=== PATIENT | female | born 1970 | race Caucasian/White ===

== ENCOUNTER 2018-08-27 09:55 | Inpatient (IN) | payer MEDICAID, OTHER ==
[2018-08-27] MEDS: ONDANSETRON 4 MG INJ IV ×5 (10:17→22:26)
[2018-08-27] MEDS: HYDROmorphONE 1 MG/ML SYG IV ×2 (10:18→11:16)
[2018-08-27] MEDS: SOD CHLORIDE 0.9% 1,000 ML IV (10:18)
[2018-08-27 10:20] LABS: ADD MAN DIFF? NO
[2018-08-27 10:22] LABS: WHITE BLOOD COUNT 7.1 10^3/ul (4.8-10.8)
[2018-08-27 10:23] LABS: BASOPHIL # 0.1 10^3/ul (0.0-0.1); BASOPHILS % 1.3 % (0.0-2.0); EOSINOPHILS # 0.1 10^3/ul (0.0-0.5); HEMATOCRIT 40.5 % (37.0-47.0); HEMOGLOBIN 13.6 g/dl (12.0-16.0); LYMPHOCYTES # 2.1 10^3/ul (0.8-2.9); LYMPHOCYTES % 29.3 % (15.0-51.0); MEAN CORPUSCULAR HEMOGLOBIN 31.3 pg (29.0-33.0); MEAN CORPUSCULAR HGB CONC 33.6 g/dl (32.0-37.0); MEAN CORPUSCULAR VOLUME 93.1 fl (82.0-101.0); MEAN PLATELET VOLUME 9.7 fl (7.4-10.4); MONOCYTE # 0.4 10^3/ul (0.3-0.9); MONOCYTES % 5.8 % (0.0-11.0); NEUTROPHIL # 4.4 10^3/ul (1.6-7.5); NEUTROPHILS % 62.3 % (39.0-77.0); PLATELET COUNT 346 10^3/UL (140-415); RED BLOOD COUNT 4.35 10^6/ul (4.20-5.40); RED CELL DISTRIBUTION WIDTH 13.8 % (11.5-14.5)
[2018-08-27 10:54] LABS: ALANINE AMINOTRANSFERASE 31 IU/L (13-69); ALBUMIN 4.4 g/dl (3.3-4.9); ALBUMIN/GLOBULIN RATIO 1.25; ALKALINE PHOSPHATASE 58 IU/L (42-121); ANION GAP 14 (5-13); ASPARTATE AMINO TRANSFERASE 33 IU/L (15-46); BILIRUBIN,INDIRECT 0.7 mg/dl (0-1.1); BILIRUBIN,TOTAL 0.7 mg/dl (0.2-1.3); BLOOD UREA NITROGEN 16 mg/dl (7-20); CALCIUM 9.5 mg/dl (8.4-10.2); CARBON DIOXIDE 25 mmol/L (21-31); CHLORIDE 104 mmol/L (97-110); Estimated GFR > 60 mL/min (>60); GLUCOSE 117 mg/dl (70-220); LIPASE 115 U/L (23-300); POTASSIUM 3.9 mmol/L (3.5-5.1); SODIUM 143 mmol/L (135-144); TOTAL PROTEIN 7.9 g/dl (6.1-8.1)
[2018-08-27] MEDS: IOHEXOL 300MG/ML 150 ML BTL (11:29)
[2018-08-27] MEDS: SOD CHLORIDE 0.9% 100 ML (11:29)
[2018-08-27] MEDS ORDERED: SOD CHLORIDE 0.9% 1,000 ML IV (13:32)
[2018-08-27] MEDS: ACETAMINOPHEN 325 MG TAB PO (13:53)
[2018-08-27] MEDS ORDERED: ONDANSETRON 4 MG INJ IV (14:00)
[2018-08-27] MEDS ORDERED: ZOLPIDEM 5 MG TAB PO (16:00)
[2018-08-27] MEDS ORDERED: NACL 0.9% 3 ML SYG IV (16:00)
[2018-08-27] MEDS ORDERED: ACETAMINOPHEN 325 MG TAB PO (16:00)
[2018-08-27] MEDS: morphine 2 MG INJ IV ×2 (16:29→20:25)
[2018-08-27] MEDS: 1/2 NS + KCL 20 MEQ 1,000 ML IV (16:30)
[2018-08-27] MEDS: LEVETIRACETAM 500 MG TAB PO (22:26)
[2018-08-28] MEDS: morphine 2 MG INJ IV ×6 (00:19→23:47)
[2018-08-28] MEDS: 1/2 NS + KCL 20 MEQ 1,000 ML IV ×3 (02:18→22:30)
[2018-08-28] MEDS: ONDANSETRON 4 MG INJ IV ×3 (04:52→19:10)
[2018-08-28 06:06] LABS: ADD MAN DIFF? NO
[2018-08-28 06:16] LABS: WHITE BLOOD COUNT 5.8 10^3/ul (4.8-10.8)
[2018-08-28 06:16] LABS: BASOPHILS % 0.7 % (0.0-2.0); EOSINOPHILS # 0.1 10^3/ul (0.0-0.5); EOSINOPHILS % 2.1 % (0.0-7.0); HEMATOCRIT 34.8 % (37.0-47.0); HEMOGLOBIN 11.3 g/dl (12.0-16.0); LYMPHOCYTES # 2.4 10^3/ul (0.8-2.9); LYMPHOCYTES % 42.3 % (15.0-51.0); MEAN CORPUSCULAR HEMOGLOBIN 30.5 pg (29.0-33.0); MEAN CORPUSCULAR HGB CONC 32.5 g/dl (32.0-37.0); MEAN CORPUSCULAR VOLUME 94.1 fl (82.0-101.0); MEAN PLATELET VOLUME 10.8 fl (7.4-10.4); MONOCYTE # 0.5 10^3/ul (0.3-0.9); MONOCYTES % 8.2 % (0.0-11.0); NEUTROPHIL # 2.7 10^3/ul (1.6-7.5); NEUTROPHILS % 46.5 % (39.0-77.0); PLATELET COUNT 268 10^3/UL (140-415)
[2018-08-28 06:34] LABS: ANION GAP 5 (5-13); BLOOD UREA NITROGEN 5 mg/dl (7-20); CALCIUM 9.1 mg/dl (8.4-10.2); CARBON DIOXIDE 29 mmol/L (21-31); CHLORIDE 105 mmol/L (97-110); CREATININE 0.64 mg/dl (0.44-1.00); Estimated GFR > 60 mL/min (>60); GLUCOSE 94 mg/dl (70-220); POTASSIUM 3.5 mmol/L (3.5-5.1); SODIUM 139 mmol/L (135-144)
[2018-08-28 06:37] LABS: PHOSPHORUS 3.6 mg/dl (2.5-4.9)
[2018-08-28 06:37] LABS: MAGNESIUM 1.7 mg/dl (1.7-2.5)
[2018-08-28 07:11] LABS: HEMOGLOBIN A1C 5.1 % (0-5.9)
[2018-08-28] MEDS: LEVETIRACETAM 500 MG TAB PO ×2 (08:55→21:04)
[2018-08-29] MEDS: 1/2 NS + KCL 20 MEQ 1,000 ML IV (01:35)
[2018-08-29] MEDS: HYDROCODONE/APAP (5/325) TAB PO ×3 (02:36→14:35)
[2018-08-29] MEDS: ONDANSETRON 4 MG INJ IV ×3 (02:36→14:39)
[2018-08-29 06:03] LABS: ANION GAP 6 (5-13); BLOOD UREA NITROGEN 4 mg/dl (7-20); CALCIUM 9.2 mg/dl (8.4-10.2); CARBON DIOXIDE 30 mmol/L (21-31); CHLORIDE 105 mmol/L (97-110); CREATININE 0.64 mg/dl (0.44-1.00); Estimated GFR > 60 mL/min (>60); GLUCOSE 108 mg/dl (70-220); POTASSIUM 4.5 mmol/L (3.5-5.1); SODIUM 141 mmol/L (135-144)
[2018-08-29] MEDS: LEVETIRACETAM 500 MG TAB PO (08:49)
== END 2018-08-29 15:00 | disposition home or self-care (01) | DRG 392 ==
LOC: E/R 09:55 → 2NE 13:33
DX: A08.4 Viral intestinal infection, unspecified (principal); R11.2 Nausea with vomiting, unspecified; G40.909 Epilepsy, unspecified, not intractable, without status epilepticus
CPT/HCPCS: 36415; 74177; 80048; 80053; 83036; 83690; 83735; 84100; 84703; 85025; 87075; 96374; 96375; 96376; 99285-25

== ENCOUNTER 2018-11-06 14:10 | Emergency (ER) | payer SELFPAY, MEDICAID ==
[2018-11-06] MEDS: ACETAMINOPHEN 325 MG TAB PO (15:14)
[2018-11-06] MEDS: SOD CHLORIDE 0.9% 1,000 ML IV ×2 (15:14→17:25)
[2018-11-06] MEDS: ONDANSETRON 4 MG INJ IV (15:14)
[2018-11-06] MEDS: LEVETIRACETAM 1000 MG (PMX) 100 ML IVPB (15:33)
[2018-11-06] MEDS: DIPHENHYDRAMINE 50 MG INJ IV (17:24)
[2018-11-06] MEDS: predniSONE 20 MG TAB PO (17:24)
[2018-11-06] MEDS: KETOROLAC 30 MG INJ IV (17:24)
== END 2018-11-06 18:59 | disposition home or self-care (01) ==
LOC: E/R 14:10
DX: R56.9 Unspecified convulsions (principal); R11.2 Nausea with vomiting, unspecified; G47.00 Insomnia, unspecified
CPT/HCPCS: 36415; 70450; 80053; 80307; 81003; 82962; 84703; 85025; 96365; 96375; 99285-25